=== PATIENT | male | born 1970 ===

== ENCOUNTER 2017-01-16 08:09 | Emergency (ER) | payer OTHER ==
[2017-01-16 08:25] VITALS: BP 102/71; PULSE 61; RESP 18; TEMP 97.9; O2SAT 99
--- NOTE | 2017-01-16 08:39 | ED PDOC ---
HPI: Skin/Bite Injury Time Seen by Provider: 01/16/17 08:12 Chief Complaint (Nursing): Abnormal Skin Integrity Chief Complaint (Provider): rash History Per: Patient History/Exam Limitations: no limitations Onset/Duration Of Symptoms: Days (x 3) Additional Complaint(s): Jacobo Ascencio is a 45 year old male, wit no previous medical history, who presents to the ED with complaints of an itchy rash to his bilateral arms and behind his left ear which developed 3 days ago after he was cleaning in the yard surrounded by plants. He denies any shortness of breath or throat tightness. PMD: none provided Past Medical History Reviewed: Historical Data, Nursing Documentation, Vital Signs Vital Signs: Last Vital Signs Temp 97.9 F 01/16/17 08:30 Pulse 61 01/16/17 08:30 Resp 18 01/16/17 08:30 BP 102/71 01/16/17 08:30 Pulse Ox 99 01/16/17 08:42 - Medical History PMH: No Chronic Diseases - Family History Family History: States: Unknown Family Hx - Home Medications Home Medications: Ambulatory Orders Medication Instructions Recorded Cetirizine HCl [Zyrtec] 10 mg PO DAILY #10 capsule 01/16/17 predniSONE [predniSONE Tab] 10 mg PO TID #15 tab 01/16/17 - Allergies Allergies/Adverse Reactions: Allergies Allergy/AdvReac Type Severity Reaction Status Date / Time No Known Allergies Allergy Verified 01/16/17 08:30 Review of Systems ROS Statement: Except As Marked, All Systems Reviewed And Found Negative ENT: Negative for: Throat Pain, Throat Swelling Respiratory: Negative for: Shortness of Breath Skin: Positive for: Rash (itchy bilateral arms and behind left ear) Physical Exam - Reviewed Nursing Documentation Reviewed: Yes Vital Signs Reviewed: Yes - Physical Exam Appears: Positive for: Well, Non-toxic, No Acute Distress Skin: Positive for: Warm, Dry, Rash (erythematous crusted rash to the forearms bilaterally and behind the left ear) Cardiovascular/Chest: Positive for: Regular Rate, Rhythm Respiratory: Positive for: CNT, Normal Breath Sounds Neurologic/Psych: Positive for: Alert, Oriented - ECG O2 Sat by Pulse Oximetry: 99 (RA) Pulse Ox Interpretation: Normal Medical Decision Making Medical Decision Making: Initial Plan: * physical exam * disposition Upon provider evaluation patient is medically stable, and requires no further treatment in the ED at this time. Patient will be discharged home with Rx. Counseling was provided and all questions were answered regarding diagnosis and need for follow up. There is agreement to discharge plan. Return if symptoms persist or worsen. Scribe Attestation: Documented by Isabel Crockett, acting as a scribe for Hermes Salcedo MD. Provider Scribe Attestation: All medical record entries made by the Scribe were at my direction and personally dictated by me. I have reviewed the chart and agree that the record accurately reflects my personal performance of the history, physical exam, medical decision making, and the department course for this patient. I have also personally directed, reviewed, and agree with the discharge instructions and disposition. Disposition - Clinical Impression Clinical Impression: Contact dermatitis - Disposition Referrals: [facility] [Outside] Disposition: Routine/Home Disposition Time: 08:45 Condition: FAIR Prescriptions: Cetirizine HCl [Zyrtec] 10 mg PO DAILY #10 capsule predniSONE [predniSONE Tab] 10 mg PO TID #15 tab Instructions: Poison Jaquelin (ED), Dermatitis (ED) Print Language: BELIZEAN
== END 2017-01-16 09:00 | disposition home or self-care (01) ==
LOC: H.ER 08:09
DX: L25.9 Unspecified contact dermatitis, unspecified cause (principal)